=== PATIENT | female | born 1970 | race Caucasian/White ===

== ENCOUNTER 2018-02-18 19:53 | Emergency (ER) | payer SELFPAY ==
[2018-02-18 20:02] VITALS: BP 150/81
--- NOTE | 2018-02-18 20:26 | UC ---
Abdominal Pain Female HPI - HPI Summary HPI Summary: PATIENT PRESENTS WITH MULTIPLE COMPLAINTS. MOST CONCERNING TODAY IS RIGHT LOWER QUADRANT PAIN THAT STARTED LAST NIGHT. SHE DENIES FEVER OR NAUSEA BUT STATES PAIN IS PERSISTENT. ALSO COMPLAINING OF RIGHT-SIDED CHEST PAIN WITH ASSOCIATED SWEATS INTERMITTENTLY FOR THE PAST 2 WEEKS. NOT WORSE WITH EXERTION. HE HAS INTERMITTENT EPISODES OF NUMBNESS AND TINGLING IN HER FINGERS AND TOES OVER THE PAST 2 MONTHS. - History of Current Complaint Chief Complaint: UCChestPain Stated Complaint: CHEST PAIN/NUMB FINGERS Time Seen by Provider: 02/18/18 20:13 Hx Obtained From: Patient Hx Last Menstrual Period: 12/2017 has had tubal Onset/Duration: Gradual Onset, Lasting Days, Still Present Timing: Constant Severity Initially: Moderate Severity Currently: Moderate Pain Intensity: 5 Pain Scale Used: 0-10 Numeric Location: Discrete At: RLQ Radiates: No Character: Sharp Aggravating Factor(s): Nothing Alleviating Factor(s): Nothing Associated Signs and Symptoms: Positive: Constipation. Negative: Diaphoresis, Back Pain, Urinary Symptoms, Nausea, Vomiting Allergies/Adverse Reactions: Allergies Allergy/AdvReac Type Severity Reaction Status Date / Time No Known Allergies Allergy Verified 02/18/18 20:02 Home Medications: Home Medications Otc Diet Pill 1 tab ONCE 02/18/18 [History Confirmed 02/18/18] PMH/Surg Hx/FS Hx/Imm Hx Previously Healthy: Yes - Surgical History Surgical History: Yes Surgery Procedure, Year, and Place: gallbladder. tubal. . shoulder. knee. toe - Family History Known Family History: Positive: Hypertension - Social History Alcohol Use: Rare Substance Use Type: None Smoking Status (MU): Never Smoked Tobacco Review of Systems Constitutional: Negative ENT: Negative Respiratory: Negative Cardiovascular: Chest Pain Gastrointestinal: Abdominal Pain Neurological: Paresthesia, Numbness All Other Systems Reviewed And Are Negative: Yes Physical Exam Triage Information Reviewed: Yes Appearance: Well-Nourished, Pain Distress - MODERATE Vital Signs: Initial Vital Signs Temp 97.8 F 02/18/18 19:56 Pulse 88 02/18/18 19:56 Resp 16 02/18/18 19:56 BP 150/81 02/18/18 19:56 Pulse Ox 100 02/18/18 19:56 Vital Signs Reviewed: Yes Eyes: Positive: Conjunctiva Clear ENT: Positive: Hearing grossly normal Neck: Positive: Supple Respiratory Exam: Normal Cardiovascular Exam: Normal Abdomen Description: Positive: Nontender, Soft, Other: - NEG OBTURATOR.. Negative: CVA Tenderness (R), CVA Tenderness (L), Distended, Guarding Bowel Sounds: Positive: Present Musculoskeletal: Positive: No Edema Neurological: Positive: Alert Psychological: Positive: Age Appropriate Behavior Skin: Negative: rashes Diagnostics - EKG Cardiac Rate: NL - 84BPM Cardiac Rhythm: Sinus: Normal Ectopy: None ST Segment: Normal Abd Pain Female Course/Dx - Differential Dx/Diagnosis Provider Diagnoses: 1. RLQ PAIN. 2. CHEST PAIN. 3. PARESTHESIAS - Physician Notification/Consults Discussed Care of Patient With: REYES RILEY MD - [facility] BY [facility] Time Discussed With Above Provider: 20:30 Instructed by Provider To: MD Will See In ED Discharge - Sign-Out/Discharge Documenting (check all that apply): Patient Departure All imaging exams completed and their final reports reviewed: No Studies - Discharge Plan Condition: Stable Disposition: TRANS HIGHER LVL OF CARE FAC Patient Education Materials: Abdominal Pain (ED) Additional Instructions: GO DIRECTLY TO THE [facility] ED FROM HERE FOR FURTHER EVALUATION. YOU HAVE DECLINED TRANSFER TO THE ED BY AMBULANCE. BE ADVISED THAT BY NOT TRAVELING IN A MONITORED SETTING YOU COULD BE RISKING WORSENING OF YOUR CONDITION THAT COULD POSE A THREAT TO YOUR LIFE, HEALTH AND MEDICAL SAFETY. - Billing Disposition and Condition Condition: STABLE Disposition: Trans Higher Lvl of Care Fac
== END 2018-02-18 20:28 | disposition short-term general hospital (02) ==
LOC: UCCORT 19:53
DX: R10.11 Right upper quadrant pain (principal); R07.9 Chest pain, unspecified; R20.2 Paresthesia of skin
CPT/HCPCS: 99202; G0463